=== PATIENT | female | born 1980 | race Hispanic/Latino ===

== ENCOUNTER 2018-04-19 08:16 | Emergency (ER) | payer SELFPAY | END 2018-04-19 09:07 | disposition home or self-care (01) | LOC: ERS 08:16 | DX: B00.89 Other herpesviral infection (principal) | CPT/HCPCS: 99282 ==

== ENCOUNTER 2023-09-09 13:11 | Emergency (ER) | payer SELFPAY ==
[2023-09-09] MEDS ORDERED: Lidocaine 1% PF 5 ML VIAL ONE (13:46)
== END 2023-09-09 15:29 | disposition home or self-care (01) ==
LOC: ERS 13:11
DX: N61.1 Abscess of the breast and nipple (principal); E11.9 Type 2 diabetes mellitus without complications; I10 Essential (primary) hypertension
CPT/HCPCS: 10060

== ENCOUNTER 2023-09-11 11:42 | Emergency (ER) | payer SELFPAY | END 2023-09-11 13:43 | disposition home or self-care (01) | LOC: ERS 11:42 | DX: Z48.00 Encounter for change or removal of nonsurgical wound dressing (principal) | CPT/HCPCS: 99282 ==

== ENCOUNTER 2024-11-14 11:02 | Emergency (ER) | payer SELFPAY ==
[2024-11-14 11:44] LABS: #Basophils 0.09 10x3/uL (0.0-0.2); %Eosinophils 1.8 % (0.0-10.0); %Lymphocytes 22.4 % (21.0-51.0); %Monocytes 6.9 % (0.0-10.0); %Neutrophils 67.3 % (42.0-75.0); Hematocrit 39.1 % (36.0-47.0); Hemoglobin 12.7 g/dL (12.0-16.0); Mean Corpuscular HGB CONC 32.5 g/dL (32.0-36.0); Mean Corpuscular Hemoglobin 27.8 pg (27.0-31.0); Mean Corpuscular Volume 85.6 fL (78.0-98.0); Mean Platelet Volume 10.5 fL (7.4-10.4); Platelet Count 335 10x3/uL (130-400); RBC Distribution Width 14.1 % (11.5-14.5); Red Blood Cell (RBC) Count 4.57 mill/uL (4.20-5.40)
[2024-11-14 11:56] LABS: CRP,High Sensitivity (Inhouse) 1.23 mg/dL (< or = 0.5)
[2024-11-14 11:57] LABS: ALT (SGPT) 36 U/L (Less than 34); AST (SGOT) 70 U/L (11-34); Albumin 3.6 g/dL (3.1-4.5); Alkaline Phosphatase 78 U/L (40-110); Anion Gap 15 mmol/L (10-20); BUN (Urea Nitrogen) 12 mg/dL (7.0-18.7); Bilirubin, Total 0.6 mg/dL (0.3-1.2); Calc. Creatinine Clearance 0 mL/min (70-130); Carbon Dioxide 24 mmol/L (22-29); Chloride 104 mmol/L (98-107); Estimated GFR 113; Globulin 3.9 g/dL (2.4-3.5); Glucose 242 mg/dL (70-105); Potassium 3.6 mmol/L (3.5-5.1); Protein, Total 7.5 g/dL (6.0-8.3); Sodium 139 mmol/L (136-145)
[2024-11-14] MEDS ORDERED: Lidocaine 1% PF 5 ML VIAL ONE (12:42)
== END 2024-11-14 13:21 | disposition home or self-care (01) ==
LOC: ERS 11:02
DX: L60.0 Ingrowing nail (principal); E11.9 Type 2 diabetes mellitus without complications; I10 Essential (primary) hypertension
CPT/HCPCS: 36415; 64450; 80053; 85025; 86141